=== PATIENT | male | born 1990 | race Caucasian/White ===

== ENCOUNTER → 2017-02-08 | Outpatient (CLI) | payer OTHER ==
--- NOTE | 2017-02-08 11:32 | KCIC ---
EXAM: Scrotal sonogram with Doppler. HISTORY: Left testicular nodule. COMPARISON: None. FINDINGS: Grayscale and Doppler analysis of the scrotum and contents was performed. The right testicle measures 3.2 x 2.2 x 1.4 cm. The parenchyma is mildly heterogeneous without clear focal lesions. The epididymis appears normal. Internal flow is normal. There is no hydrocele. The left testicle measures 2.9 x 2.0 x 1.3 cm. The parenchyma is mildly heterogeneous without focal lesions. A cyst in the left epididymal head measures 5 x 4 mm. Testicular and epididymal flow appear normal. There is no hydrocele. IMPRESSION: 1. 5 mm benign left epididymal head cyst. Correlate for this as the palpable site of concern. No suspicious testicular lesion bilaterally. 2. The testicles measure somewhat small. The parenchyma is mildly heterogeneous suggesting atrophy. Correlate clinically. Electronically signed by: Zayda Westbrook MD (02/08/2017 11:28 AM) [id number]
== END | disposition home or self-care (01) ==
LOC: KCIC US 10:06
PROVIDERS: ATTEND Family Medicine
DX: N50.89 Other specified disorders of the male genital organs (principal)
CPT/HCPCS: 76870